=== PATIENT | female | born 1965 | race Caucasian/White ===

== ENCOUNTER 2020-04-20 07:30 | Inpatient (IN) ==
[2020-04-20] MEDS ORDERED: Azithromycin 500 mg/250 ml NS 500 MG/250 ML BAG IVPB ONE (07:59)
[2020-04-20] MEDS ORDERED: NS 0.9% 1000 ml BAG 1,000 ML IV ONE (08:02)
[2020-04-20] MEDS ORDERED: Albuterol HFA INHALER 8 gm MDI INH PRN (10:49)
[2020-04-20] MEDS ORDERED: Magnesium Sulfate 2 gm BAG 2 GM/50 ML BAG IVPB ONE (10:59)
[2020-04-20 13:07] LABS: Albumin 3.2 g/dL (3.2-5.2); Albumin/Globulin Ratio 0.8 (1-3); BUN/Creatinine Ratio 17.2 (8-20); Calcium 8.8 mg/dL (8.6-10.3); EGFR African American 131.1 (>60); EGFR Non-African American 108.3 (>60); Potassium 3.8 mmol/L (3.5-5.0); Total Bilirubin 0.4 mg/dL (0.2-1.0); Total Protein 7.2 g/dL (6.4-8.9)
[2020-04-20] MEDS ORDERED: Iohexol 350 (CONTRAST) 500 ML MDV IV ONE (14:23)
[2020-04-20] MEDS ORDERED: Remdesivir 100 mg Vial 200 MG in NS 0.9% 250 ml 210 ML IV ONE (16:00)
[2020-04-20] MEDS: Enoxaparin 40 MG/0.4 ML SYR SUBCUT SCH (17:32)
[2020-04-20] MEDS: cefTRIAXone 1 gm/50 mL NS BAG 1 GM/50 ML BAG IVPB SCH (22:14)
[2020-04-21] MEDS: Nystatin TOP POWDER 15 GM BTL TOPICAL SCH ×3 (00:43→21:12)
[2020-04-21] MEDS: Enoxaparin 40 MG/0.4 ML SYR SUBCUT SCH ×2 (04:54→15:18)
[2020-04-21 08:25] LABS: Hematocrit 39 % (35-47); Hemoglobin 13.3 g/dL (12.0-16.0); Mean Corpuscular HGB Conc 34 g/dL (31-36); Mean Corpuscular Hemoglobin 31 pg (27-31); Mean Corpuscular Volume 92 fL (80-97); Mean Platelet Volume 8.5 fL (7.4-10.4); Platelet Count 284 10^3/uL (150-450); Red Blood Count 4.27 10^6 /uL (3.70-4.87); Red Cell Distribution Width 13 % (10-15); White Blood Count 6.2 10^3/uL (3.5-10.8)
[2020-04-21 08:42] LABS: Albumin 3.2 g/dL (3.2-5.2); Albumin/Globulin Ratio 0.8 (1-3); BUN/Creatinine Ratio 32.1 (8-20); Calcium 9.1 mg/dL (8.6-10.3); EGFR African American 145.5 (>60); EGFR Non-African American 120.2 (>60); Globulin 4.1 g/dL (2-4); Potassium 3.9 mmol/L (3.5-5.0); Total Bilirubin 0.3 mg/dL (0.2-1.0); Total Protein 7.3 g/dL (6.4-8.9)
[2020-04-21 08:44] LABS: INR 1.35 (0.82-1.09)
[2020-04-21] MEDS: Azithromycin 500 mg/250 ml NS 500 MG/250 ML BAG IVPB SCH (09:23)
[2020-04-21 10:47] LABS: ABS Lymphocytes 0.6 10^3/ul (1.0-4.8); ABS Monocytes 0.5 10^3/ul (0-0.8); Lymphocyte % 10.1 %
[2020-04-21] MEDS: Remdesivir 100 mg Vial 100 MG in NS 0.9% 250 ml 230 ML IV SCH (21:28)
[2020-04-21] MEDS: cefTRIAXone 1 gm/50 mL NS BAG 1 GM/50 ML BAG IVPB SCH (22:36)
[2020-04-22] MEDS: Enoxaparin 40 MG/0.4 ML SYR SUBCUT SCH ×2 (06:15→17:34)
[2020-04-22 06:43] LABS: Hematocrit 35 % (35-47); Hemoglobin 11.8 g/dL (12.0-16.0); Mean Corpuscular HGB Conc 34 g/dL (31-36); Mean Corpuscular Hemoglobin 31 pg (27-31); Mean Corpuscular Volume 92 fL (80-97); Mean Platelet Volume 8.4 fL (7.4-10.4); Platelet Count 258 10^3/uL (150-450); Red Blood Count 3.79 10^6 /uL (3.70-4.87); Red Cell Distribution Width 14 % (10-15); White Blood Count 4.9 10^3/uL (3.5-10.8)
[2020-04-22 06:56] LABS: BUN/Creatinine Ratio 29.3 (8-20); Calcium 8.6 mg/dL (8.6-10.3); EGFR African American 131.1 (>60); EGFR Non-African American 108.3 (>60); Potassium 3.9 mmol/L (3.5-5.0)
[2020-04-22] MEDS: Azithromycin 500 mg/250 ml NS 500 MG/250 ML BAG IVPB SCH (09:41)
[2020-04-22] MEDS: Nystatin TOP POWDER 15 GM BTL TOPICAL SCH ×2 (09:42→21:21)
[2020-04-22] MEDS: Remdesivir 100 mg Vial 100 MG in NS 0.9% 250 ml 230 ML IV SCH (21:34)
[2020-04-22] MEDS: cefTRIAXone 1 gm/50 mL NS BAG 1 GM/50 ML BAG IVPB SCH (23:18)
[2020-04-23] MEDS: Enoxaparin 40 MG/0.4 ML SYR SUBCUT SCH (05:09)
[2020-04-23] MEDS: Azithromycin 500 mg/250 ml NS 500 MG/250 ML BAG IVPB SCH (08:45)
[2020-04-23] MEDS: Nystatin TOP POWDER 15 GM BTL TOPICAL SCH (08:49)
[2020-04-23 10:56] VITALS: BP 122/78
== END 2020-04-23 14:45 | disposition home or self-care (01) | DRG 137 ==
LOC: ED 07:30 → MED 10:42
PROVIDERS: ADMIT Internal Medicine; ATTEND Internal Medicine